=== PATIENT | female | born 1955 | race African-American/Black ===

== ENCOUNTER 2016-11-14 14:29 | Emergency (ER) | payer BC ==
[~2016-11-14] VITALS: Ht 170.2 cm; Wt 94.3 kg
--- NOTE | 2016-11-14 15:11 | EKG ---
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
--- NOTE | 2016-11-14 15:41 | PHYS DOC ---
Past History Past Medical History: No Pertinent History, Cancer, Hypertension Past Surgical History: Cancer Surgery, Hysterectomy, Other Alcohol Use: None Drug Use: None Adult General Chief Complaint Chief Complaint: UPPER EXTREMITY PAIN HPI HPI Patient is a 61 year old female who presents with complaint of right-sided shoulder and neck pain. Patient states that she awoke with the pain early this morning. Patient states that the pain is maximally tender along her right shoulder in the distribution of her trapezius muscle. Patient states that the pain worsens when this area is pushed and has mild pain with range of motion of the right shoulder. Patient states that she has had a similar episode in the past which was relieved with muscle relaxants. Patient states that she took Tylenol earlier today with no relief in symptoms. Patient denies any associated shortness of breath, substernal chest pain, nausea, diaphoresis. The patient has history of hypertension and is currently compliant with her blood pressure medications. Patient currently rates her pain as 7 out of 10. Review of Systems Review of Systems Constitutional: Denies fever or chills [] Eyes: Denies change in visual acuity, redness, or eye pain [] HENT: Denies nasal congestion or sore throat [] Respiratory: Denies cough or shortness of breath [] Cardiovascular: Denies chest pain or edema [] GI: Denies abdominal pain, nausea, vomiting, bloody stools or diarrhea [] : Denies dysuria or hematuria [] Musculoskeletal: Right shoulder and neck pain [] Integument: Denies rash or skin lesions [] Neurologic: Denies headache, focal weakness or sensory changes [] Current Medications Current Medications Current Medications Medications (Trade) Dose Ordered Sig/[facility] Start Time Stop Time Status Last Admin Dose Admin Orphenadrine Citrate (Norflex) 60 mg 1X ONCE 11/14/16 15:45 11/14/16 15:46 11/14/16 15:26 60 MG Allergies Allergies Allergies Coded Allergies Type Severity Reaction Last Updated Verified No Known Allergies Allergy Unknown 02/13/16 Yes Physical Exam Physical Exam Constitutional: Well developed, well nourished, no acute distress, non-toxic appearance. [] HENT: Normocephalic, atraumatic, bilateral external ears normal, oropharynx moist, no oral exudates, nose normal. [] Eyes: PERRLA, EOMI, conjunctiva normal, no discharge. [] Neck: Normal range of motion, tenderness palpation along right paraspinous muscle along distribution of right trapezius muscles, supple, no stridor. [] Cardiovascular:Heart rate regular rhythm, no murmur [] Lungs & Thorax: Bilateral breath sounds clear to auscultation [] Abdomen: Bowel sounds normal, soft, no tenderness, no masses, no pulsatile masses. [] Skin: Warm, dry, no erythema, no rash. [] Back: No tenderness, no CVA tenderness. [] Extremities: Tenderness to palpation along right trapezius muscle with palpable spasm, no cyanosis, no clubbing, ROM intact, no edema. [] Neurologic: Alert and oriented X 3, normal motor function, normal sensory function, no focal deficits noted. [] Current Patient Data Vital Signs Vital Signs Date Time Temp Pulse Resp B/P (MAP) Pulse Ox O2 Delivery O2 Flow Rate FiO2 11/14/16 15:23 83 20 146/81 (102) 95 Room Air 11/14/16 14:29 98.1 EKG EKG Interpreted by me: Heart rate 81, sinus rhythm, normal intervals, leftward axis , no acute ST/T-wave abnormalities present [] Radiology/Procedures Radiology/Procedures Not performed [] Course & Med Decision Making Course & Med Decision Making Pertinent Labs and Imaging studies reviewed. (See chart for details) The patient's symptoms appear to be localizing to the right trapezius muscle consistent with muscle strain. I have low suspicion for acute cardiac disease in this patient. The patient's EKG appears to be normal and patient does not have any anginal equivalents. ALIYAH score is 0. Patient was given IM Norflex in the emergency department with improvement in symptoms. The patient will be continued on oral Flexeril at home. Advised to continue on home prescription of Celebrex and recommended follow-up in the next 3-4 days with primary doctor for reevaluation. Patient voiced understanding and in agreement with treatment plan. Dragon Disclaimer Dragon Disclaimer This chart was dictated in whole or in part using Voice Recognition software in a busy, high-work load, and often noisy Emergency Department environment. It may contain unintended and wholly unrecognized errors or omissions. Departure Departure: Impression: Primary Impression: Trapezius muscle strain Disposition: HOME, SELF-CARE Condition: IMPROVED Referrals: GRACY LOVING DO (PCP) Patient Instructions: Muscle Strain Additional Instructions: Follow-up with primary doctor in the next 3-4 days. Return to the emergency department for any worsening symptoms. Scripts Cyclobenzaprine Hcl (CYCLOBENZAPRINE HCL) 10 Mg Tablet 1 TAB PO TID Y for MUSCLE SPASMS, #30 TAB Prov: SELENA JOSEPH MD 11/14/16 Problem Qualifiers Primary Impression: Trapezius muscle strain Encounter type: initial encounter Laterality: right Qualified Codes: S46.811A - Strain of other muscles, fascia and tendons at shoulder and upper arm level, right arm, initial encounter SELENA JOSEPH MD Nov 14, 2016 15:41
[2016-11-14] MEDS ORDERED: ORPHENADRINE CITRATE 60 MG/2 ML VIAL. IM ONE (15:45)
[2016-11-14] MEDS ORDERED: CYCL-331 PO (15:52)
[2016-11-14 15:54] VITALS: BP 131/79
== END 2016-11-14 16:00 | disposition home or self-care (01) ==
LOC: ER 14:29
DX: S46.811A Strain of other muscles, fascia and tendons at shoulder and upper arm level, right arm, initial encounter (principal); I10 Essential (primary) hypertension; X58.XXXA Exposure to other specified factors, initial encounter; Y93.89 Activity, other specified; Y99.8 Other external cause status; Y92.89 Other specified places as the place of occurrence of the external cause
CPT/HCPCS: 93005; 96372; 99283; J2360

== ENCOUNTER 2018-05-24 23:44 | Emergency (ER) | payer BC ==
[~2018-05-24] VITALS: Ht 170.2 cm; Wt 102.1 kg
[~2018-05-24 23:44] MED LIST: CYCL-331 PO
--- NOTE | 2018-05-24 23:53 | ED.ADGEN ---
Past History Past Medical History: No Pertinent History, Cancer, Hypertension Past Surgical History: Cancer Surgery, Hysterectomy, Other Alcohol Use: None Drug Use: None Adult General Chief Complaint Chief Complaint ".. I had surgery on my feet today... and they gave me a pain pill to take.. I had the one at the office.. and my next one is due at 8 pm.. but it did not seem to be working.. and this big toe on the Lt. is killing me.. I am afraid .. I will not be able to sleep with it a hurting.. " HPI HPI Patient is a 62 year old female who presents with above hx and complaints Lt 1 st toe pain after surgery today at [facility] by Dr. Nick. Pt. took an Oxycodoe at discharge and took another one at 2000 hrs. Pt. states this did not relieve the pain enough to sleep. She call non destructive testing specialist for Dr. Nick and advised she go to ED for evaluation. Pt. had surgery on srinivasan feet today. Pt. pain in localize more in Lt foot and 1st toe. Capillary refill is equal to other toes on Rt foot. Dressing removed and surgery site appears stable. Removal of Suresh bandage did help with pt pain. Pt. did admit was not keeping foot elevated as directed at discharge today. Review of Systems Review of Systems Constitutional: Denies fever or chills [] Eyes: Denies change in visual acuity, redness, or eye pain [] HENT: Denies nasal congestion or sore throat [] Respiratory: Denies cough or shortness of breath [] Cardiovascular: No additional information not addressed in HPI [] GI: Denies abdominal pain, nausea, vomiting, bloody stools or diarrhea [] : Denies dysuria or hematuria [] Musculoskeletal: Denies back pain or joint pain []Foot pain after surgery Integument: Denies rash or skin lesions [] Neurologic: Denies headache, focal weakness or sensory changes [] Endocrine: Denies polyuria or polydipsia [] All other systems were reviewed and found to be within normal limits, except as documented in this note. Family History Family History Non-contributory Current Medications Current Medications Current Medications Medications (Trade) Dose Ordered Sig/[facility] Start Time Stop Time Status Last Admin Dose Admin Morphine Sulfate (Morphine 10mg Syringe) 10 mg 1X ONCE 05/25/18 00:15 05/25/18 00:16 DC 05/25/18 00:34 10 MG Allergies Allergies Allergies Coded Allergies Type Severity Reaction Last Updated Verified No Known Allergies Allergy Unknown 02/13/16 Yes Physical Exam Physical Exam Constitutional: Moderately acute distress, non-toxic appearance. [] HENT: Normocephalic, atraumatic, bilateral external ears normal, oropharynx moist, no oral exudates, nose normal. [] Eyes: PERRLA, EOMI, conjunctiva normal, no discharge. [] Neck: Normal range of motion, no tenderness, supple, no stridor. [] Cardiovascular:Heart rate regular rhythm, no murmur []PMI to L.t. Lungs & Thorax: Bilateral breath sounds clear to auscultation [] Abdomen: Bowel sounds normal, soft, no tenderness, no masses, no pulsatile masses. [] Morbid obesity. Old surgery scar. Skin: Warm, dry, no erythema, no rash. [] Back: No tenderness, no CVA tenderness. [] Extremities: No tenderness, no cyanosis, no clubbing, ROM intact, no edema. [] Except findings of Lt foot and 1 st toe as per HPI. Neurologic: Alert and oriented X 3, normal motor function, normal sensory function, no focal deficits noted. [] Psychologic: Affect anxious, judgement normal, mood normal. [] EKG EKG [] Radiology/Procedures Radiology/Procedures My interpretation of X-ray show chronic bone loss and djd. Multiple screws in 1st toe and tarsal area. [] Course & Med Decision Making Course & Med Decision Making Pertinent Labs and Imaging studies reviewed. (See chart for details). Pt. to follow up or call Dr. Nick in AM. Must keep foot elevated above heart. . Take pain meds as directed. Return if any concerns. [] Final Impression Final Impression 1. Post Surgery Pain[]- Lt foot and 1st toe. Dragon Disclaimer Dragon Disclaimer This electronic medical record was generated, in whole or in part, using a voice recognition dictation system. Dragon Disclaimer This chart was dictated in whole or in part using Voice Recognition software in a busy, high-work load, and often noisy Emergency Department environment. It may contain unintended and wholly unrecognized errors or omissions. Discharge Summary Visit Information Final Diagnosis Problems Medical Problems: (1) Pain Status: Acute Brief Hospital Course Allergies Allergies Coded Allergies Type Severity Reaction Last Updated Verified No Known Allergies Allergy Unknown 02/13/16 Yes Brief Hospital Course Ms. Alejandre is a 62 old female who presented with post surgery pain in Lt foot and l st toe. Discharge Information Condition at Discharge: Improved Disposition/Orders: D/C to Home Dischare Medications Current Medications Morphine Sulfate (Morphine 10mg Syringe) 10 mg 1X ONCE SQ Last administered on 05/25/18at 00:34; Admin Dose 10 MG; Start 05/25/18 at 00:15; Stop 05/25/18 at 00:16; Status DC Active Scripts Active Cyclobenzaprine Hcl 10 Mg Tablet 1 Tab PO TID PRN ROSE ALFORD MD May 24, 2018 23:53
[2018-05-25] MEDS ORDERED: MORPHINE SULFATE 10 MG/ML SYRINGE. SQ ONE (00:15)
[2018-05-25 00:55] VITALS: BP 148/92
--- NOTE | 2018-05-25 02:23 | RAD ---
Left foot 3 views 05/24/2018. Reason for exam: Pain after surgery. There are no available comparison studies. A cast is in place, obscuring bony detail. Fixation screws are visible in the first toe involving the metatarsal and proximal phalanx. There apparently has been resection of the distal end of the fifth metatarsal. The second through fourth proximal phalanges show some irregularity on different views, and nondisplaced fractures cannot be excluded. No other acute abnormality is seen. There is no apparent destructive process. IMPRESSION: Limited study due to presence of a cast. Postoperative changes are seen. Electronically signed by: Chaz Irwin Jr., MD (05/25/2018 2:19 AM) [facility]
== END 2018-05-25 01:03 | disposition home or self-care (01) ==
LOC: ER 05-25 00:01
DX: G89.18 Other acute postprocedural pain (principal); M79.675 Pain in left toe(s); M79.672 Pain in left foot; I10 Essential (primary) hypertension; Z98.890 Other specified postprocedural states
CPT/HCPCS: 73630; 96372; 99284; J2270

== ENCOUNTER 2021-03-12 14:36 | Emergency (ER) | payer MEDICARE, BC ==
[~2021-03-12] VITALS: Ht 170.2 cm; Wt 101.0 kg
--- NOTE | 2021-03-12 15:06 | PHYS DOC ---
Past History Past Medical History: Arthritis, Cancer, Hypertension, Hypothyroid, Other Past Surgical History: Cancer Surgery, Hysterectomy, Other Alcohol Use: None Drug Use: None Adult General HPI HPI Patient is a 65-year-old female complaining of neck pain. Onset was approximately 2 months ago without any noticeable mechanism of injury, trauma, inciting event or other exposure. Patient is trying to take Tylenol and was previously prescribed muscle relaxers by her primary care physician without significant relief. Pain to the lateral portions of her neck in certain positional movements of neck make worse. Pain is sharp in nature and often radiates upwards towards scalp and towards the left upper extremity. Timing of symptoms is inconsistent. She has not had any diagnostic imaging performed or seen any outpatient specialist. She has no fever, recent injuries, travel, vision changes, URI symptoms or other concerning findings. States she is otherwise healthy with no other pertinent medical issues or medications taken on a daily basis. States she came in today because she just could not take the pain Review of Systems Review of Systems Fourteen body systems of review of systems have been reviewed. See HPI for pertinent positives and negative responses, other marmolejo all other systems are negative, non-pertinent or non-contributory Allergies Allergies Allergies Coded Allergies Type Severity Reaction Last Updated Verified No Known Allergies Allergy Unknown 02/13/16 Yes Physical Exam Physical Exam Constitutional: Well developed, well nourished, no acute distress, non-toxic appearance. HENT: Normocephalic, atraumatic, bilateral external ears normal, oropharynx moist, no oral exudates, nose normal. Eyes: PERRLA, EOMI, conjunctiva normal, no discharge. Neck: Normal range of motion, tenderness present to bilateral paracervical muscle bellies and bilateral trapezius muscle bellies, supple, no stridor. No nuchal rigidity or meningeal signs. No midline tenderness with palpation or step-offs. Negative Spurling sign bilaterally Cardiovascular: Heart rate regular, sinus rhythm, no murmurs rubs or gallops Lungs & Thorax: Bilateral breath sounds clear to auscultation Abdomen: Bowel sounds normal, soft, no tenderness, no masses, no pulsatile masses. Nonsurgical abdomen, no peritoneal signs Skin: Warm, dry, no erythema, no rash. Back: No tenderness, no CVA tenderness. Extremities: No tenderness, no cyanosis, no clubbing, ROM intact, no edema. Neurologic: Alert and oriented X 3, grossly normal motor & sensory function, no focal deficits noted. Psychologic: Affect normal, judgement normal, mood normal. Current Patient Data Vital Signs Vital Signs Date Time Temp Pulse Resp B/P (MAP) Pulse Ox O2 Delivery O2 Flow Rate FiO2 03/12/21 14:54 98.6 90 18 136/85 (102) 98 Room Air Vital Signs Date Time Temp Pulse Resp B/P (MAP) Pulse Ox O2 Delivery O2 Flow Rate FiO2 03/12/21 15:30 89 16 128/83 (98) 97 Room Air 03/12/21 14:54 98.6 EKG EKG [] Radiology/Procedures Radiology/Procedures [] Heart Score C/O Chest Pain: No Risk Factors: Risk Factors: DM, Current or recent (<one month) smoker, HTN, HLP, family history of CAD, obesity. Risk Scores: Risk Factors: DM, Current or recent (<one month) smoker, HTN, HLP, family history of CAD, obesity. Course & Med Decision Making Course & Med Decision Making ABCs unremarkable. I disclosed entirety of ER findings and discussed most likely diagnosis of neck pain with etiology likely being musculoskeletal versus cervical spine in nature without any injury. Other diagnoses were discussed with patient such as spinal abscess and meningitis but all deemed less likely causes of patient's presentation. This problem has been going on for 2 months and currently being worked up in outpatient setting by primary care physician, patient has not seen PCP in several weeks and has not been taking Tylenol regularly. No indication for further diagnostic work-up in ER setting. Steroid shot administered with refill of short-term muscle relaxer supply per patient request with instructions to follow-up with primary care physician next scheduled business day to review chronic neck pain and plan of care going forward. Plan of care discussed at length with need for close outpatient follow- up to review today's ER visit stressed. Strict return precautions were also discussed at length with good understanding verbalized by patient. Patient voiced understanding and agreement with the plan. Patient knows to come back for repeat evaluation if concerning signs or symptoms present prior to outpatient follow-up. Hemodynamically stable, ambulatory and well-appearing at time of disposition. Dragon Disclaimer Dragon Disclaimer This electronic medical record was generated, in whole or in part, using a voice recognition dictation system. Departure Departure: Impression: Primary Impression: Neck pain Disposition: HOME / SELF CARE / HOMELESS Condition: STABLE Referrals: GRACY LOVING DO (PCP) Patient Instructions: Soft Tissue Injury of the Neck Additional Instructions: You were seen for neck pain. Your pain is most likely due to a muscle strain versus cervical spine issue. You should continue taking Tylenol, stretching, previously prescribed muscle relaxers and follow-up with your primary care physician for continued outpatient follow-up. You would likely benefit from fur ther diagnostic testing in outpatient setting and potentially consultation with a specialist. Do not drink, drive, or do anything important while taking flexeril because it can make you sleepy. You should return to the ED if you develop worsening pain, fever, numbness, tingling, weakness, or any other new or concerning symptoms. Scripts Cyclobenzaprine Hcl (CYCLOBENZAPRINE HCL) 5 Mg Tablet 1 TAB PO TID for MUSCLE SPASMS, #15 TAB Prov: CHANG SHUKLA DO 03/12/21 CHANG SHUKLA DO Mar 12, 2021 15:06
[2021-03-12] MEDS ORDERED: methylPREDNISolone ACETATE 40 MG/ML VIAL. IM ONE (15:15)
[2021-03-12] MEDS ORDERED: CYCL5TAB PO (15:28)
[2021-03-12 15:30] VITALS: BP 128/83
== END 2021-03-12 15:30 | disposition home or self-care (01) ==
LOC: ER 14:36
DX: M54.2 Cervicalgia (principal); I10 Essential (primary) hypertension; Z90.710 Acquired absence of both cervix and uterus
CPT/HCPCS: 96372; 99283; J1030

== ENCOUNTER 2021-05-23 22:12 | Emergency (ER) | payer MEDICARE, BC ==
[~2021-05-23] VITALS: Ht 170.2 cm; Wt 101.0 kg
[~2021-05-23 22:12] MED LIST changes: -CYCL-331 PO; +CYCL10TA19 PO; +CYCL5TAB PO
[2021-05-24 00:05] VITALS: BP 152/96
--- NOTE | 2021-05-24 00:27 | PHYS DOC ---
Past History Past Medical History: Arthritis, Cancer, Hypertension, Hypothyroid, Other Additional Past Medical Histor: "pinched" nerve in her neck Past Surgical History: Cancer Surgery, Hysterectomy, Other Additional Past Surgical Histo: thyroidectomy, parathyroidectomy; lia foot [place] rudloph in February Alcohol Use: None Drug Use: None General Adult EDM: Chief Complaint: Neck Pain HPI: HPI: 65- year-old female coming in for chronic neck pain. Patient states she been taking her oxycodone tens at home without improvement. Is also taking Celebrex. Patient denies any new injuries. Has had epidural injections from the pain management clinic that helps but said her last week she had an adverse reaction to it. Denies any new injuries. Says she is got some pain in her thoracic spine muscles and arms. Says the pain radiates to both sides. Had a previous MRI and was told that she has "pinched nerves" Review of Systems: Review of Systems: All other systems within normal limits except for as noted in the HPI Allergies: Allergies: Allergies Coded Allergies Type Severity Reaction Last Updated Verified No Known Allergies Allergy Unknown 05/24/21 Yes Physical Exam: PE: Constitutional: Well developed, well nourished, no acute distress, non-toxic appearance. [] HENT: Normocephalic, atraumatic, bilateral external ears normal, nose normal. [] Eyes: PERRLA, conjunctiva normal, no discharge. [] Neck: No rigidity, supple, no stridor. [] Cardiovascular: Regular rate and rhythm, brisk cap refill [] Lungs & Thorax: Non labored symmetric respirations, no tachypnea or respiratory distress [] Abdomen: Soft, nondistended. Skin: Warm, dry, no erythema, no rash. [] Back: Unremarkable Extremities: No deformities, range of motion grossly intact, no lower extremity edema [] Neurologic: Alert and oriented X 3, no focal deficits noted. [] Psychologic: Affect normal, judgement normal, mood normal. [] Current Patient Data: Vital Signs: Vital Signs Date Time Temp Pulse Resp B/P (MAP) Pulse Ox O2 Delivery O2 Flow Rate FiO2 05/24/21 00:05 99.3 81 17 152/96 (114) 97 Room Air EKG: EKG: [] Radiology/Procedures: Radiology/Procedures: [] Heart Score: C/O Chest Pain: No Risk Factors: Risk Factors: DM, Current or recent (<one month) smoker, HTN, HLP, family history of CAD, obesity. Risk Scores: Score 0 - 3: 2.5% MACE over next 6 weeks - Discharge Home Score 4 - 6: 20.3% MACE over next 6 weeks - Admit for Clinical Observation Score 7 - 10: 72.7% MACE over next 6 weeks - Early Invasive Strategies Course & Med Decision Making: Course & Med Decision Making Pertinent Labs and Imaging studies reviewed. (See chart for details) [] Dragon Disclaimer: Dragon Disclaimer: This electronic medical record was generated, in whole or in part, using a voice recognition dictation system. Departure Departure: Impression: Primary Impression: Neck pain, chronic Disposition: HOME / SELF CARE / HOMELESS Condition: STABLE Referrals: GRACY LOVING DO (PCP) Patient Instructions: Chronic Pain Management ANA NAYLOR MD May 24, 2021 00:27
[2021-05-24] MEDS ORDERED: KETOROLAC 60 MG/2 ML VIAL. IM ONE (00:30)
[2021-05-24] MEDS ORDERED: MORPHINE SULFATE 10 MG/ML SYRINGE. IV ONE (00:30)
[2021-05-24] MEDS ORDERED: DEXAMETHASONE 4 MG TABLET PO ONE (00:30)
[2021-05-24] MEDS ORDERED: MORPHINE SULFATE 10 MG/ML SYRINGE. SQ ONE (01:00)
[2021-05-26] MEDS ORDERED: MORPHINE SULFATE 10 MG/ML SYRINGE. SQ ONE (03:15)
== END 2021-05-24 00:58 | disposition home or self-care (01) ==
LOC: ER 22:12
DX: G89.29 Other chronic pain (principal); M54.2 Cervicalgia; M19.90 Unspecified osteoarthritis, unspecified site; I10 Essential (primary) hypertension; E03.9 Hypothyroidism, unspecified
CPT/HCPCS: 96372; 99284; J1885; J8540

== ENCOUNTER 2021-06-14 09:39 | Emergency (ER) | payer MEDICARE, BC ==
[~2021-06-14] VITALS: Ht 170.2 cm; Wt 98.6 kg
[2021-06-14 09:56] VITALS: BP 131/92
[2021-06-14] MEDS ORDERED: MORPHINE SULFATE 4 MG/ML DISP.SYRIN. IM ONE (10:00)
[2021-06-14] MEDS ORDERED: methylPREDNISolone ACETATE 40 MG/ML VIAL. IM ONE (10:00)
--- NOTE | 2021-06-14 10:03 | PHYS DOC ---
Past History Past Medical History: Arthritis, Cancer, Hypertension, Hypothyroid, Other Additional Past Medical Histor: "pinched" nerve in her neck Past Surgical History: Cancer Surgery, Hysterectomy, Other Additional Past Surgical Histo: thyroidectomy, parathyroidectomy; lia foot [place] in February Alcohol Use: None Drug Use: None Adult General Chief Complaint Chief Complaint: Neck Pain [facility] HPI Patient is a 65-year-old female presenting with via POV for neck pain. This is a chronic issue. She has known degenerative disc disease in the neck with subsequent pinched nerves and is currently being seen in outpatient setting by primary care physician and neurosurgeon. Nonetheless, patient admits that she has not had any injury, trauma or other exposure to flareup her neck but simply admits that she has been out of her home medication for past several days. She was unable to contact her primary care physician for refill over the weekend and holiday yesterday. Nonetheless, while in the ER she admits she received a new prescription for her previously prescribed pain medications. With that said, she is requesting similar IM medications that were given at last visit for acute pain given that she has been without all medications for past several days. Reports she is otherwise been at baseline health with no changes in motor or sensory or neuro function Review of Systems Review of Systems Fourteen body systems of review of systems have been reviewed. See HPI for pertinent positives and negative responses, other marmolejo all other systems are negative, non-pertinent or non-contributory Allergies Allergies Allergies Coded Allergies Type Severity Reaction Last Updated Verified No Known Allergies Allergy Unknown 05/24/21 Yes Physical Exam Physical Exam Constitutional: Well developed, well nourished, no acute distress, non-toxic appearance. HENT: Normocephalic, atraumatic, bilateral external ears normal, oropharynx moist, no oral exudates, nose normal. Eyes: PERRLA, EOMI, conjunctiva normal, no discharge. Neck: Does have restricted active range of motion at endpoints of rotation bilaterally DT known issue of pinched nerve no midline tenderness, supple, no stridor. Cardiovascular: Heart rate regular, sinus rhythm, no murmurs rubs or gallops Lungs & Thorax: Bilateral breath sounds clear to auscultation Abdomen: Bowel sounds normal, soft, no tenderness, no masses, no pulsatile masses. Nonsurgical abdomen, no peritoneal signs Skin: Warm, dry, no erythema, no rash. Back: No tenderness, no CVA tenderness. Extremities: No tenderness, no cyanosis, no clubbing, ROM intact, no edema. Neurologic: Alert and oriented X 3, grossly normal motor & sensory function, no focal deficits noted. Psychologic: Affect normal, judgement normal, mood normal. EKG EKG [] Radiology/Procedures Radiology/Procedures [] Heart Score C/O Chest Pain: No Risk Factors: Risk Factors: DM, Current or recent (<one month) smoker, HTN, HLP, family history of CAD, obesity. Risk Scores: Risk Factors: DM, Current or recent (<one month) smoker, HTN, HLP, family hist ory of CAD, obesity. Course & Med Decision Making Course & Med Decision Making ABCs unremarkable HPI and physical exam nonconcerning for any emergent or surgical issues Patient given IM morphine, Toradol and steroids for acute pain with instructions to avoid any further opiate use until later in the day when she can sampler pickup her typically prescribed outpatient pain medication for her chronic neck pain Patient has follow-up with her neurosurgeon at the end of the month for repeat evaluation where she will be talking about surgical intervention. Strict return precautions discussed at length with good understanding by patient and prior to ER departure [place] Disclaimer Dragon Disclaimer This electronic medical record was generated, in whole or in part, using a voice recognition dictation system. Departure Departure: Impression: Primary Impression: Chronic neck pain Disposition: HOME / SELF CARE / HOMELESS Condition: STABLE Referrals: GRACY LOVING DO (PCP) Additional Instructions: As discussed prior to ER departure, your vitals and physical exam were nonconcerning for any emergent or surgical issues. You presented for chronic pain without any new exacerbation and/or injury. With that said, you have been out of your home medications for the last several days and experiencing worsened pain than baseline. Your symptoms improved with intermuscular medications given in ER. You were counseled on avoiding outpatient narcotic pain medication until later this evening to avoid any potential concomitant opiate use and/or negative side effects that could result in mixing such medications. Please contact your primary care physician immediately after ER departure in addition to your neurosurgeon to review ER visit today and need for close outpatient follow-up. It was pleasure to take care of you and I wish you the best going forward CHANG SHUKLA DO Jun 14, 2021 10:03
[2021-06-14] MEDS ORDERED: KETOROLAC 30 MG/ML VIAL. IM ONE (10:15)
== END 2021-06-14 10:44 | disposition home or self-care (01) ==
LOC: ER 09:39
DX: M54.2 Cervicalgia (principal); I10 Essential (primary) hypertension; Z90.710 Acquired absence of both cervix and uterus
CPT/HCPCS: 96372; 99284; J1030; J1885; J2270